=== PATIENT | female | born 1940 | race Caucasian/White ===

== ENCOUNTER → 2017-07-10 10:40 | Outpatient (CLI) | payer MEDICARE, SELFPAY ==
--- NOTE | 2017-07-10 10:56 | XR_ITS ---
XR ankle RT min 3V HISTORY: ITS.REASON: RT ANKLE SPRAIN,INJURY ORDERING PHYSICIAN: Verna Suarez PATIENT AGE: 77 years COMPARISON: FINDINGS: There is moderate soft tissue swelling overlying the lateral malleolus. No fracture or dislocation evident. Mildly prominent calcaneal spurs noted at 8 mm. There is also a prominent enthesophyte at the Achilles insertion and 11 mm. There is generalized vascular calcification and surgical clips are noted over the distal leg medially. IMPRESSION: 1. No acute fracture. 2. Soft tissue swelling. 3. Calcaneal spur and prominent Achilles enthesophyte
== END ==
PROVIDERS: PCP Nurse Practitioner Family; Visit Provider Nurse Practitioner Family
DX: S93.491A Sprain of other ligament of right ankle, initial encounter (principal); S99.911A Unspecified injury of right ankle, initial encounter
CPT/HCPCS: 73610

== ENCOUNTER → 2017-08-02 11:55 | Outpatient (CLI) | payer MEDICARE, SELFPAY ==
--- NOTE | 2017-08-02 12:04 | XR_ITS ---
EXAM: XR lumbar spine min 4V HISTORY: ITS.REASON: MID BACK PAIN ORDERING PHYSICIAN: Nabro Larson MD PATIENT AGE: 77 years COMPARISON: 05/12/2015 FINDINGS: Normal alignment. No fracture or dislocation. No lytic or blastic change. Degenerative disc disease is present at L4-L5 and to lesser degree at L1-L2 and L2-L3. Sclerosis is present involving the endplates at L4-L5. There is 7 mm anterolisthesis of L4 similar to the previous exam. Facet arthritic changes are also present at L4-L5 and L5-S1. There are multiple pelvic calcifications and there is sclerosis of the SI joints on both sides. There is a 17 mm calcific density in right upper quadrant consistent with a gallstone. IMPRESSION: Overall no change degenerative disc disease at L4-L5 and facet arthritic change at L4-L5 and L5-S1 with sclerosis of the SI joints. Cholelithiasis
--- NOTE | 2017-08-02 12:04 | XR_ITS ---
EXAM: XR thoracic spine 3V HISTORY: ITS.REASON: MID BACK PAIN Comparison: None FINDINGS: Normal alignment. No fracture or dislocation. No lytic or blastic change. Mild multilevel degenerative disc disease is present. Small anterior osteophytes are present in the midthoracic spine. Incidental aortic calcifications are noted. 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 No acute finding
== END ==
PROVIDERS: PCP Family Medicine; Visit Provider Family Medicine
DX: M54.6 Pain in thoracic spine (principal)
CPT/HCPCS: 72072; 72110

== ENCOUNTER → 2019-06-27 16:13 | Outpatient (CLI) | payer MEDICARE, SELFPAY ==
--- NOTE | 2019-06-27 | ECG_ITS ---
APPROVED REPORT Exam: Resting ECG HR:66 bpm ECG Measurements Heart Rate 66 AXES TX 112 P QRSd 82 QRS 63 QT 420 T 80 QTc 440 <Conclusion> Normal sinus rhythm ST abnormality, possible digitalis effect Abnormal ECG Electronically signed by : Juan Ayala, 06/30/2019 13:16:26
[2019-06-27 16:38] LABS: Basophils # 0.1 K/mm3 (0-0.2); Basophils % 0.7 % (0.1-2.0); Eosinophils # 0.2 K/mm3 (0.0-0.4); Eosinophils % 3.1 % (0.1-12.0); Hematocrit 35.6 % (37.0-47.0); Hemoglobin 11.6 g/dL (12.2-16.2); Lymphocytes # 3.2 K/mm3 (0.7-4.5); Lymphocytes % 41.9 % (10-50); Mean Corpuscular HGB Conc 32.7 g/dL (31.8-35.4); Mean Corpuscular Hemoglobin 30.9 pg (27.0-31.2); Mean Corpuscular Volume 94.6 fl (81-99); Monocytes # 0.4 K/mm3 (0.1-1.0); Monocytes % 5.4 % (1.7-9.3); Neutrophils # 3.8 K/mm3 (1.8-7.8); Neutrophils % 48.9 % (37.0-80.0); Platelet Count 224 K/mm3 (142-424); Red Blood Count 3.77 M/mm3 (4.20-5.40); Red Cell Distribution Width 13.4 % (11.5-17.5); White Blood Count 7.8 K/mm3 (4.8-10.8)
== END ==
PROVIDERS: Visit Provider Otolaryngology
DX: Z01.818 Encounter for other preprocedural examination (principal); C76.0 Malignant neoplasm of head, face and neck
CPT/HCPCS: 36415; 85025; 93005

== ENCOUNTER 2019-07-04 07:21 | Day surgery (SDC) | payer MEDICARE, SELFPAY ==
[2019-07-02 08:47] VITALS: BMI 22.6
[2019-07-04 07:45] VITALS: BP 179/70; PULSE 64; RESP 18; TEMP 37.1; O2SAT 98
--- NOTE | 2019-07-04 08:01 | HMH.ANESCL ---
[facility] Anesthesia Checklist - Structural Data Admitted From: Home Planned Operative Procedure/s: excision neoplasm l cheek Consent for Planned Operative Procedure(s) Verified: Yes - Additional verifications Anesthesia Reactions: No Hx Blood Transfusions: Yes Blood Transfusion Reaction: No - Airway Assessment C-Spine Mobility Assessed: Yes TMJ Mobility Assessed: Yes Dentition: Poor Dentition - Neurological Assessment Level of Consciousness: Awake, Alert, Appropriate - Anesthesia Plan Anesthesia Risk discussed: Yes Anesthesia Plan: Verified ASA Class: II Anesthesia Type: MAC [facility] History I have reviewed the patient's past medical history: Yes Medical History: Reports:: Diabetes Mellitus Type 2, Hyperlipidemia Denies:: Cancer, Diabetes Mellitus Type 1, Internal Pacemaker, MRSA, Seizures *Have you ever received a pneumonia vaccine?: Yes *Have you received a flu vaccine this season?: Yes Other Medical History: Reports: Hypothyroidism. Denies: Blood Transfusion Reaction Anesthesia experience/problems:: none Other Surgeries: Yes: Cardiac Surgery. No: Pacemaker Amputation: No Fractures: No - *Social History Educational Level: Completed High School Smoking Status: Never smoker Alcohol Intake: never Substance Use Type: denies use *Occupational Status:: retired Housing: house Household Members: significant other *Travel in the last 8 weeks: None Family Hx:: Cancer, Diabetes, Heart Attack, Hyperlipidemia, Hypertension
[2019-07-04 08:02] LABS: POC Glucose,Bedside 101 (70-110)
[2019-07-04 09:27] VITALS: BP 121/84; PULSE 61; RESP 18; TEMP 36.7; O2SAT 97
[2019-07-04 09:32] VITALS: BP 121/84; PULSE 62; RESP 20; TEMP 36.7; O2SAT 97
--- NOTE | 2019-07-04 09:32 | P.PN_ITS ---
[facility] Anesthesia Record Part I Intake, IV Amount: 500 Estimated blood loss (mL): 0 Urine output (mL): 0 Blood Products used (#): none Blood Pressure: 121/84 SaO2: 97 Pulse Rate: 62 Respiratory Rate: 20 Temperature: 98.0 F Patient is:: Awake, Stable Stable to PACU at:: 09:27
[2019-07-04 09:42] VITALS: BP 161/72; PULSE 55; RESP 18; O2SAT 97
[2019-07-04 09:54] VITALS: BP 151/59; PULSE 57; RESP 18; O2SAT 100
--- NOTE | 2019-07-04 10:13 | P.OP_ITS ---
Date of procedure: 07/04/19 Pre-op Diagnosis:: 1. 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 Malignant neoplasm left cheek middle 3.5 cm 3. Malignant neoplasm left cheek anterior 2 cm Post-op Diagnosis:: same Procedure performed:: 1. Excision of malignant neoplasm left cheek posterior 4.5 cm with tissue rearrangement geometric plastic repair 2. Excision of malignant neoplasm left cheek middle 3.5 cm with tissue rearrangement geometric plastic repair 3. Excision of malignant neoplasm left cheek anterior 2 cm with tissue rearrangement geometric plastic repair Surgeon:: Raoul Barahona MD INFORMATION SERVICES ASSISTANT:: Juan Londono Anesthesia: MAC Estimated blood loss (mL): 4 Operative findings:: same Operative note:: The left side of the face was prepped and draped. The eyes were protected with Steri-Strips. The perilesional areas were infiltrated with a total of 6 cc of 2% lidocaine with epi. The left cheek posterior lesion was marked out and it measured 4.5 cm, the fermin out was incised and the lesion was excised and submitted. Bleeding was stopped with bipolar cautery and Surgicel snow was placed in the defect. Anterior and posterior incisions were made and a tissue rearrangement geometric plastic repair was done with interrupted 5-0 and 4-0 nylon sutures. A Dermabond dressing was applied. The lesion on the middle portion of the left cheek measured 3.5 cm. The fermin out was incised and the lesion was excised and submitted. Bleeding was stopped with bipolar cautery. A medial and posterior incision was made and a tissue rearrangement geometric plastic repair was done with interrupted 4-0 nylon sutures. Dermabond dressing was applied. The lesion on the anterior part of the left cheek was marked out it measured 2 cm. The fermin out was incised and the lesion was excised and submitted. Bleeding was stopped with bipolar cautery and Surgicel snow was placed in the defect. Blood loss for all the procedures was less than 10 cc. Superior and inferior incisions were made and a tissue rearrangement geometric plastic repair was done. Dermabond dressing was applied, the patient tolerated the procedure well and was sent to recovery in good general condition. Condition: stable Disposition: PACU Complications:: none
== END 2019-07-04 09:55 | disposition home or self-care (01) ==
LOC: OR 07:23
PROVIDERS: PCP Family Medicine; Visit Provider Otolaryngology
DX: C44.309 Unspecified malignant neoplasm of skin of other parts of face (principal); E11.9 Type 2 diabetes mellitus without complications; Z79.84 Long term (current) use of oral hypoglycemic drugs
CPT/HCPCS: 14040; 82962; 88305; 96374; 96375

== ENCOUNTER → 2019-10-29 10:33 | Outpatient (CLI) | payer MEDICARE, SELFPAY ==
--- NOTE | 2019-10-29 10:46 | CA_ITS ---
APPROVED REPORT Clinical Psychologist: Suad Song RVT Laterality: Bilateral Study Quality: Excellent Indications: Bruit Doppler Spectral Velocity Analysis ECA (R) 120.30/4.90 cm/s ECA (L) 118.70/5.50 cm/s dICA (R) 88.30/23.20 cm/s dICA (L) 95.80/20.70 cm/s Kae (R) 97.50/26.90 cm/s Kae (L) 97.40/18.20 cm/s pICA (R) 94.30/29.50 cm/s pICA (L) 83.50/16.30 cm/s dCCA (R) 84.30/11.80 cm/s dCCA (L) 89.20/10.70 cm/s pCCA (R) 99.40/10.00 cm/s pCCA (L) 81.00/10.70 cm/s Vert (R) 45.90/9.70 cm/s Vert (L) 56.90/12.80 cm/s ICA/CCA 1.16 ICA/CCA 1.09 Findings Study suggests 20-49% stenosis of the right internal cartoid artery. Study suggests 20-49% stenosis of the left internal cartoid artery. Antegrade flow seen bilateral vertebral arteries. Conclusion Study suggests 20-49% stenosis of the right internal cartoid artery. Study suggests 20-49% stenosis of the left internal cartoid artery. Antegrade flow seen bilateral vertebral arteries. Electronically signed by : Sanjeev Little MD 10/29/2019 18:05:13
== END ==
PROVIDERS: PCP Family Medicine; Visit Provider Family Medicine
DX: R09.89 Other specified symptoms and signs involving the circulatory and respiratory systems (principal)
CPT/HCPCS: 93880

== ENCOUNTER → 2020-02-17 11:52 | Outpatient (CLI) | payer MEDICARE, SELFPAY ==
--- NOTE | 2020-02-17 11:57 | XR_ITS ---
PROCEDURE: XR SHOULDER RT MIN 2V CLINICAL INDICATION: ACUTE PAIN OF RT SHOULDER, DECREASED ROM OF RT SHOULDER COMPARISON: No exams were available for comparison FINDINGS: No fracture or dislocation. No lytic or blastic change. There is normal mineralization. Mild osteoarthritis of the glenohumeral joint and acromioclavicular joint. Other findings:None. IMPRESSION: Mild osteoarthritis Dictated by: Sanjeev Little MD 02/17/2020 16:21 Sanjeev Little MD in OV 02/17/2020 16:21
== END ==
PROVIDERS: PCP Family Medicine; Visit Provider Nurse Practitioner Family
DX: M25.511 Pain in right shoulder (principal); M25.611 Stiffness of right shoulder, not elsewhere classified
CPT/HCPCS: 73030

== ENCOUNTER → 2020-09-01 13:15 | Outpatient (CLI) | payer MEDICARE, SELFPAY ==
--- NOTE | 2020-09-01 13:19 | CA_ITS ---
APPROVED REPORT Cistern Room Operator: Suad Song RVT Laterality: Bilateral Study Quality: Good Indications: bruit Risk Factors Hypertension: Hyperlipidemia Doppler Spectral Velocity Analysis ECA (R) 130.00/7.70 cm/s ECA (L) 124.20/7.70 cm/s dICA (R) 83.80/32.20 cm/s dICA (L) 84.00/27.40 cm/s Kae (R) 101.00/37.40 cm/s Kae (L) 127.10/39.50 cm/s pICA (R) 83.80/26.20 cm/s pICA (L) 104.00/21.20 cm/s dCCA (R) 131.90/18.30 cm/s dCCA (L) 86.80/12.70 cm/s mCCA (R) 99.20/16.40 cm/s mCCA (L) 86.80/13.50 cm/s pCCA (R) 115.60/22.20 cm/s pCCA (L) 94.30/14.20 cm/s Vert (R) 52.40/12.70 cm/s Vert (L) 55.20/16.70 cm/s ICA/CCA 0.77 ICA/CCA 1.46 Findings Study suggests 20-49% stenosis of the right internal cartoid artery. Study suggests 20-49% stenosis of the left internal cartoid artery. Antegrade flow seen bilateral vertebral arteries. Conclusion Study suggests 20-49% stenosis of the right internal cartoid artery. Study suggests 20-49% stenosis of the left internal cartoid artery. Antegrade flow seen bilateral vertebral arteries. Electronically signed by : Sanjeev Little MD 09/01/2020 16:56:04
== END ==
PROVIDERS: PCP Family Medicine; Visit Provider Family Medicine
DX: R09.89 Other specified symptoms and signs involving the circulatory and respiratory systems (principal)
CPT/HCPCS: 93880

== ENCOUNTER → 2022-02-21 12:06 | Outpatient (CLI) | payer MEDICARE, SELFPAY ==
--- NOTE | 2022-02-21 12:44 | XR_ITS ---
FINAL REPORT CLINICAL HISTORY: RT KNEE PAIN, fall today, swelling and bruising FINDINGS: Four views of the right knee were obtained. There is no acute fracture or dislocation. There are mild and moderate degenerative changes. There are postoperative changes. There is vascular calcification. There is severe anterior soft tissue swelling. IMPRESSION: Swelling with no acute bony abnormality. Reviewed, Interpreted and Dictated by Travis Delgado III, MD Transcribed by Hemal Goodson Authenticated and [facility]
== END ==
PROVIDERS: PCP Family Medicine; Visit Provider Nurse Practitioner Family
DX: M25.561 Pain in right knee (principal)
CPT/HCPCS: 73562

== ENCOUNTER → 2022-02-22 14:03 | Outpatient (CLI) | payer MEDICARE, SELFPAY ==
--- NOTE | 2022-02-22 14:06 | US_ITS ---
FINAL REPORT CLINICAL HISTORY: VAGINAL BLEEDING FINDINGS: Transvaginal sonographic images of the pelvis were obtained. The uterus measures 5.2 x 3.1 x 2.0 cm. The endometrium measures 3 mm, which is within normal limits. There is a small amount of fluid in the endometrial cavity of uncertain significance. There is a probable 10 mm posterior fundal uterine fibroid. The right ovary is not visualized secondary to bowel. The left ovary measures 2.0 cm in length. Normal blood flow seen to the ovaries. There is no evidence of free fluid. IMPRESSION: Probable 10 mm posterior fundal uterine fibroid. Small amount of fluid in the endometrial cavity of uncertain significance. Reviewed, Interpreted and Dictated by Travis Delgado III, MD Transcribed by Criss Almaguer Authenticated and [facility]
== END ==
PROVIDERS: PCP Family Medicine; Visit Provider Family Medicine
DX: N95.0 Postmenopausal bleeding (principal)
CPT/HCPCS: 76830

== ENCOUNTER 2024-03-25 09:59 | Emergency (ER) | payer MEDICARE, SELFPAY ==
[2024-03-25 09:59] VITALS: RESP 18; O2SAT 78; BMI 22.4
--- NOTE | 2024-03-25 10:15 | HMH.EDGENADL ---
Discharge Plan Disposition Patient Disposition: Date/Time: 03/25/24 10:07 Clinical Impressions Clinical Impression: Cardiac arrest, Hypoglycemia, Acute hypoxic respiratory failure Discharge ED Provider: Brittanie Guzamn General Adult HPI General Stated complaint: Unresponsive Time Seen by Provider: 03/25/24 10:15 History of Present Illness HPI narrative: This patient is an elderly female, unfortunately we do not know any personal identifying information such as name or age at this time, presenting as a CODE BLUE. According to EMS, they were called to the home of a female that was lying down in the bathroom floor. She was reportedly last seen around 530 this morning in her normal state. They note that there was either a boyfriend or there who stated that he thought the patient was . Fire department had started CPR upon EMS arrival. They continued ACLS until arrival with auto pulse in place. They attempted advanced airway placement but were unsuccessful, so she arrived with a supraglottic airway. They noted V-fib initially for which 1 shock was delivered, and then asystole afterward on each pulse check. They administered epi per ACLS protocols without other interventions prior to arrival. They state that she is a diabetic but they did not check her blood glucose. Patient does not contribute to history given current condition. [facility] Disclaimer: The information contained in this section may have been updated after the patient was seen, as this information can be updated by other users. Social History Smoking Status: Unknown if ever smoked alcohol intake: never current occupational status: retired Travel in the last 8 weeks: None ROS Obtained: Yes unobtainable due to mental status Physical Exam General General appearance: in distress Comment: Chest compressions in progress with auto pulse in place, ventilated via supraglottic airway Head Head exam: atraumatic and normocephalic Eye Eye exam: Present other (Pupils fixed and dilated) ENT ENT exam: Present other (Mucous membranes dry, blue) Chest Chest inspection: Present other (Auto pulse in place administering chest compressions) Respiratory Respiratory exam: Present other (Ventilated via supraglottic airway) Cardiovascular Cardiovascular exam: Present other (Pulseless, asystole on telemetry) Abdominal Exam Abdominal exam: Present soft; Absent distention Extremities Exam Extremities exam: Present other (Cyanotic, skin tears left arm and bilateral lower extremities from removal from the bathroom) Neurological Exam Neurological exam: Present other (GCS 3, no reflexes noted such as corneal reflex or gag reflex); Absent alert Skin Skin exam: Present mottled and other (Cold, cyanotic) Medical Decision Making Medical Records Screening: Per USPSTF and CDC recommendations, given the prevalence of disease in our region, it is our hospital?s policy to screen for HIV and viral Hepatitis for all patients aged 18 and over and those with ongoing risk factors. Jaswinder Inquiry Pt receiving controlled substance: No Medical Decision Narrative: In summary, this patient is a elderly female presenting to the Emergency Department for evaluation of cardiac arrest. Differential diagnoses considered include but are not limited to TN, hypoglycemia, electrolyte derangements, dysrhythmia, CVA, respiratory failure, among many others. Ruling out the most morbid conditions drove assessment. Unfortunately, we did not know anything about the patient upon arrival except that she is a diabetic. She arrived with CPR in progress and ventilation via [id number] through a supraglottic airway. Upon arrival, fingerstick blood glucose noted to be too low to detect, so she was given 2 A of D50. Supraglottic airway was removed and I intubated the patient with a 7-1/2 ET tube with a MAC 3 video-assisted blade. Breath sounds were confirmed with auscultation bilaterally. She did not have great color change and end-tidal was noted to be 12-13. She was also given bicarb given possible prolonged downtime so she was last seen well around 530 this morning and concern for significant acidosis. Multiple rounds of ACLS were continued, and cardiac ultrasound was performed at each pulse check and noted no organized cardiac activity. She had asystole on the monitor on each pulse check with no pulse. She had no residual reflexes noted, no meaningful cardiac activity noted on ultrasound, asystole on monitor. She was cold, pale, mottled, with end-tidal CO2 peaking at 17 with multiple rounds of ACLS with an advanced airway and administered dextrose and epinephrine. Given concerns that the patient has had significant prolonged downtime with no evidence of residual reflexes or cardiac activity, decision was made to call time of at 1007. Patient's long-term partner, Giovany, and nephews arrived. I talked with Giovany who was living with the patient at home and noted that she had been sick for several days, not eating or drinking anything. She is a known diabetic. 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 He states that she asked for help to the bathroom this morning, but she ended up on the floor and can never get up. This was around 530 this morning. She became unresponsive and he was concerned that she had . He states that he wanted to call for EMS but had no minutes on his phone and his car was noted. It took him a long period of time to be able to get his car out of the snow and then he went to the [facility] to get minutes for his phone so that he could call. He called dispatch, and at that point fire and EMS were dispatched out to the home. This is when she was found pulseless and unresponsive and CPR was initiated. This was just before 10:00 this morning. This confirms significant extended period of downtime. Parts Room Associate was called and arrived at bedside. Procedures Intubation ET Tube Size: 7.5 ET Tube Uncuffed: Yes Tube Secured Depth (cm): 24 Tube Secured Location: lips Tube Placement Confirmation: visualized tube passing through cords, equal breath sounds bilaterally and no breath sounds over epigastrium Additional Comments: Endotracheal intubation was performed while CPR was in progress. No medications given. This was performed with a MAC 3 video-assisted blade with 1 attempt. No immediate complications noted. Critical Care Critical Care Time Critical Care Time: No
--- NOTE | 2024-03-25 10:19 | PC.NURSE ---
MANAV ESCOBAR, DIRECTOR ELECTRICAL ENGINEERING AND DISPATCH CONFIRMED PT [facility]ENTITY
--- NOTE | 2024-03-25 10:57 | P.DN_ITS ---
Pronouncement Note Date and Time of Date of : 03/25/24 Time of : 10:07 PCOD Preliminary cause of : Cardiac arrest Contributing Factors (1) Hypoglycemia: Summary Additional details: Patient arrived in cardiac arrest with prolonged downtime. This was an unwitnessed arrest. Hypoglycemia noted upon arrival and treated without return of spontaneous circulation. Additional Data Confirmation of : no pulse, no respirations, no heart sounds and pupils fixed and dilated Family: at bedside Additional persons at bedside: other (dryer and washer mechanic) Attending/PCP notified?: No Was code activated?: Yes Autopsy should be considered if:: Unknown or unanticipated medical complications Cause is not known with certainty on clinical grounds Would allay concerns of the public/family regarding Unexplained/unexpected apparently natural and not subject to a forensic medical jurisdiction DOA Within 24 hours of admission Sustained or apparently sustained injury while in the hospital Result of high risk, infectious and contagious disease Obstetric and pediatric arising from environmental or occupational hazard Unexplained/unexpected from dental, medical, or surgical diagnostic procedures and/or therapies Would disclose a known or suspected illness which also may have a bearing on survivors or recipients of transplanted organs Autopsy requested?: No Does not meet criteria greige goods examiner notified?: Yes Organ bank notified?: Yes Advance directives: Yes
--- NOTE | 2024-03-25 11:14 | PC.NURSE ---
[facility] CONTACTED, DOES NOT QUALIFY FOR DONATION PER FRANCY
--- NOTE | 2024-03-25 11:21 | PC.NURSE ---
0954 PT ARRIVES VIA EMS, CPR PER AUTOPULSE, LMA IN PLACE, 18GA LEFT WRIST. IO TO LEFT TIBIA. PT RECEIVED 3 ROUNDS OF EPI, LIVESTOCK JUDGING COACH. PT COLD AND PALE 0956 PULSE CHECK, ASYSTOLE, EPI GIVEN. ET TUBE PLACED, 7.5, 24 AT THE TEETH. BILATERAL BREATH SOUNDS, COLOR CHANGE. CPR RESUMED 0957 GLUCOSE LOW PER GLUCOMETER, 1 AMP D50 GIVEN 0958 PULSE CHECK, ASYSTOLE, NO CARDIAC ACTIVITY PER US VIA DR JOHNSON, CPR RESUMED 1000 EPI GIVEN 1000 1 AMP D50 GIVEN, PULSE CHECK, ASYSTOLE, CPR RESUMED 1002 BICARB GIVEN 1002 PULSE CHECK, ASYSTOLE, CPR RESUMED 1004 GLUCOSE LOW PER GLUCOMETER 1004 PULSE CHECK, ASYSTOLE, NO CARDIAC ACTIVITY PER US PER DR JOHNSON, CPR RESUMED 1006 PULSE CHECK, ASYSTOLE 1007 CODE ENDED, PT
--- NOTE | 2024-03-25 12:44 | PC.NURSE ---
[facility] AT BEDSIDE
== END 2024-03-25 12:55 | disposition expired ==
PROVIDERS: Emergency Provider Emergency Medicine; PCP Family Medicine
DX: I46.9 Cardiac arrest, cause unspecified (principal); J96.01 Acute respiratory failure with hypoxia; E16.2 Hypoglycemia, unspecified
CPT/HCPCS: 92950; 99285; J0171